=== PATIENT | female | born 1950 ===

== ENCOUNTER 2017-03-26 16:53 | Emergency (ER) | payer MEDICARE, OTHER ==
[2017-03-26 16:53] VITALS: BMI 33.7
[2017-03-26 17:10] VITALS: O2SAT 99
[2017-03-26] MEDS ORDERED: Sodium Chloride 0.9% 500 ML IV STA (17:29)
[2017-03-26 17:49] LABS: BASO # 0.1 K/uL (0.0-0.2); BASO % 1.2 % (0.0-2.0); EOS % 0.5 % (0.0-4.0); HEMATOCRIT 36.9 % (34.0-47.0); LYMPH # 1.4 K/uL (1.0-4.3); LYMPH % 19.9 % (20.0-40.0); MEAN CELL VOLUME 92.7 fl (81.0-99.0); MEAN CORPUSCULAR HEMOGLOBIN 30.4 pg (27.0-31.0); MEAN CORPUSCULAR HGB CONC 32.8 g/dL (33.0-37.0); MEAN PLATELET VOLUME 8.3 fl (7.2-11.7); MONO # 0.5 K/uL (0.0-0.8); MONO % 7.6 % (0.0-10.0); NEUT # 4.9 K/uL (1.8-7.0); NEUT % 70.8 % (50.0-75.0); WHITE BLOOD COUNT 6.9 K/uL (4.8-10.8)
--- NOTE | 2017-03-26 17:52 | ED PDOC ---
HPI: Abdomen Time Seen by Provider: 03/26/17 17:13 Chief Complaint (Nursing): Abdominal Pain Chief Complaint (Provider): Abdominal Pain History Per: Patient History/Exam Limitations: no limitations Onset/Duration Of Symptoms: Hrs Outside of [place] travel?: No Current Symptoms Are (Timing): Still Present Location Of Pain/Discomfort: LLQ Associated Symptoms: Nausea. denies: Vomiting, Diarrhea, Constipation Additional Complaint(s): Kaitlynn Mendoza, a 66 year old female, with a PMHx of diverticulitis presents to the ED complaining of abdominal pain. The patient reports that she has chronic abdominal pain but within the past 4 hours her pain has become more severe. She states that her pain is localized to the LLQ but radiates to the RLQ and LUQ. The patient states that she has had similar symptoms prior to episodes of diverticulitis. She reports that she took nexium and bentyl with no relief. The patient states prior to the onset of severe pain she had a normal appetite. Denies vomiting, diarrhea, constipation, black/bloody stools, fever, urinary symptoms but reports having chills and nausea PMD: Dr. Resendiz Past Medical History Reviewed: Historical Data, Nursing Documentation, Vital Signs Vital Signs: Last Vital Signs Temp 97.8 F 03/26/17 17:07 Pulse 86 03/26/17 17:07 Resp 16 03/26/17 17:07 BP 149/96 H 03/26/17 17:07 Pulse Ox 99 03/26/17 18:02 - Medical History PMH: Anxiety, Arthritis, Asthma, Depression, Diabetes (Borderline Diabetes), Diverticulitis, Fractures (HX: FX. RIGHT ANKLE), Gastritis, HTN, Hypercholesterolemia, Peripheral Edema, Sleep Apnea Denies: HIV, Chronic Kidney Disease - Surgical History Surgical History: Endoscopy Other surgeries: Left foot surgery - Family History Family History: States: Hypertension - Social History Current smoker - smoking cessation education provided: No Ex-Smoker (has not smoked in the last 12 months): No Alcohol: None Drugs: Denies - Home Medications Home Medications: Ambulatory Orders Medication Instructions Recorded ALPRAZolam [Xanax] 1 mg PO BID 06/28/15 Dicyclomine [Bentyl] 10 mg PO DAILY 06/28/15 Gabapentin [Neurontin] 600 mg PO TID 06/28/15 Triamterene/Hydrochlorothiazid 1 tab PO DAILY 06/28/15 [Triamterene-Hctz 37.5-25 mg Tb] Ascorbic Acid [Vitamin C 500 mg 500 mg PO DAILY 01/10/16 Tab] Aspirin [[place] Aspirin] 81 mg PO DAILY 01/10/16 Omeprazole [Prilosec] 40 mg PO DAILY 01/10/16 Simvastatin 40 mg PO HS 01/10/16 buPROPion XL [Wellbutrin XL] 300 mg PO DAILY 01/10/16 Atorvastatin [Lipitor] 1 tab PO DAILY 07/31/16 Bupropion HCl [Bupropion Xl] 150 mg PO DAILY 07/31/16 Levocetirizine Dihydrochloride 1 tab PO DAILY 07/31/16 [Xyzal] Meloxicam [Mobic] 1 tab PO DAILY 07/31/16 Multivit,Iron,Min 5/Folic Acid 1 tab PO DAILY 07/31/16 [Strovite Forte Caplet] Risedronate Sodium [Actonel] 1 tab PO QWK 07/31/16 Zolpidem [Ambien] 1 tab PO HS PRN 07/31/16 Ciprofloxacin [Cipro] 500 mg PO BID #14 tab 08/02/16 Metronidazole [Flagyl] 500 mg PO TID #21 tablet 08/02/16 Ciprofloxacin HCl [Cipro] 500 mg PO BID #20 tab 03/26/17 Ondansetron ODT [Zofran ODT] 1 odt PO Q6 PRN #20 odt 03/26/17 metroNIDAZOLE [Flagyl] 500 mg PO TID #30 tab 03/26/17 traMADol [Ultram] 50 mg PO TID PRN #15 tab 03/26/17 - Allergies Allergies/Adverse Reactions: Allergies Allergy/AdvReac Type Severity Reaction Status Date / Time Penicillins AdvReac DIZZINESS Verified 03/26/17 17:07 Review of Systems ROS Statement: Except As Marked, All Systems Reviewed And Found Negative Constitutional: Positive for: Chills. Negative for: Fever Gastrointestinal: Positive for: Nausea, Abdominal Pain. Negative for: Vomiting , Diarrhea, Constipation Genitourinary Female: Negative for: Dysuria, Frequency, Incontinence, Hematuria Physical Exam - Reviewed Nursing Documentation Reviewed: Yes Vital Signs Reviewed: Yes - Physical Exam Appears: Positive for: Non-toxic, Uncomfortable, In Acute Distress (Moderate painful distress.) Head Exam: Positive for: ATRAUMATIC, NORMOCEPHALIC Skin: Positive for: Normal Color, Warm, Dry Eye Exam: Positive for: Normal appearance, EOMI, PERRL ENT: Positive for: Pharynx Is (pharynx is clear), Other (dry mucous membranes) Neck: Positive for: Normal, Painless ROM, Supple Cardiovascular/Chest: Positive for: Regular Rate, Rhythm, Chest Non Tender. Negative for: Tachycardia Respiratory: Positive for: Normal Breath Sounds. Negative for: Wheezing, Respiratory Distress Gastrointestinal/Abdominal: Positive for: Soft, Tenderness (Tenderness to palpation diffusely but exquisite tenderness to palpation in LLQ.), Other ( Neative for adams's sign). Negative for: Mass, Guarding, Rebound Back: Positive for: Normal Inspection Extremity: Positive for: Normal ROM. Negative for: Tenderness, Pedal Edema, Deformity, Swelling Neurologic/Psych: Positive for: Alert, Oriented, Gait - Laboratory Results Result Diagrams: 03/26/17 17:35 03/26/17 17:35 - ECG O2 Sat by Pulse Oximetry: 99 (RA) Pulse Ox Interpretation: Normal Medical Decision Making Medical Decision Makin:13 Initial impression: 66 year old female presenting with LLQ pain Differential: Diverticulitis, Colitis, Perforation,Abscess,Kidney stones Initial Plan: * CT ABD&PELVIS IV contrast * CMP * Lactic acid plasma * Lipase * Udip * CBC * Partial thromboplastin * Prothrombin time * Toradol 15mg IV * Morphine IVP * NS 500ml IV 500mls/hr * Zofran inj 8mg IV * Blood culture * Reevaluation Accession No. 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 no. Patient Name: KAITLYNN MENDOZA Pt. Address: [address] [place] [address] Rec #: [id number] [place] [address]: Jhoan PATIÑO, Nellie Salgado Pt Order Location: [facility] : 1950 Female Age: 66 Order #: [id number] Reason for exam: LLQ pain h/o diverticulitis CT Scan ABD PELVIS IV CONTRAST ONLY Exam Date: 03/26/17 This imaging exam was performed at [facility] EXAM: CT Abdomen and Pelvis With Intravenous Contrast CLINICAL HISTORY: 66 years old, female; Pain; Abdominal pain; Generalized; Patient HX: History of diverticulitis; Additional info: Llq pain h/o diverticulitis TECHNIQUE: Axial computed tomography images of the abdomen and pelvis with intravenous contrast. This CT exam was performed using one or more of the following dose reduction techniques: automated exposure control, adjustment of the mA and/or kV according to patient size, and/or use of iterative reconstruction technique. Coronal and sagittal reformatted images were created and reviewed. CONTRAST: 95 mL of OMNIPAQUE 300 administered intravenously. EXAM DATE/TIME: 03/26/2017 5:29 PM COMPARISON: CT - ABD PELVIS PO IV CONTRAST 07/31/2016 1:01:29 AM FINDINGS: Lower thorax: The heart is mildly enlarged. There is a small hiatal hernia. There is dependent atelectasis and scarring at the lung bases. There is a 7.4 mm peripheral nodular opacity in the right lower lobe similar to that seen on the prior study ABDOMEN: Liver: There is a cyst in the left lobe of the liver. There are additional low attenuation hepatic lesions too small to characterize. There is fatty infiltration of the liver. Gallbladder and bile ducts: unremarkable Pancreas: Pancreas is atrophic. Spleen: unremarkable Adrenals: Right adrenal is unremarkable. There is an 8.9 mm fatty left adrenal nodule. Kidneys and ureters: unremarkable Stomach and bowel: Stomach is incompletely distended. There is duodenal wall and fold prominence. Rotation is normal. Majority of the small bowel is mildly dilated and filled with enteric contents. There are nondilated loops in the left upper quadrant with wall thickening. Distal and terminal ileum are fecalized and dilated. Appendix is unremarkable. There is diverticulosis throughout the colon. Appendix: See stomach and bowel PELVIS: Bladder: unremarkable Reproductive: Uterus and adnexal structures are unremarkable. ABDOMEN and PELVIS: Intraperitoneal space: There is no significant fluid. There is no free air. Bones/joints: There are degenerative changes in the osseus structures. Soft tissues: There is a right inguinal hernia containing fat and fluid. There is a very small fat containing left inguinal hernia. There is a small fat containing umbilical hernia. Vasculature: There are multiple phleboliths. There are vascular calcifications. Lymph nodes: There is shotty adenopathy IMPRESSION: Enteritis, no obstruction; extensive colonic diverticulosis without CT findings of diverticulitis Additional findings as described above. Dictated By: Hakeem Villavicencio MD, MD Dictated Date/Time: 03/26/171929 Signed By: Hakeem Villavicencio MD Date Signed: 1929 Transcribed By: CHANNING Transcribe Date/Time : 03/26/171929 ANGELLA/ANAHY Labs unremarkable. On reevaluation Pt feeling better. DW pt findings and plan of care. Antibiotics, symptomatic treatment, f/u pmd 24 hours. Scribe Attestation Documented by Sussy Burdick acting as a scribe for Nellie Staples MD. Provider Attestation All medical record entries made by the Scribe were at my direction and personally dictated by me. I have reviewed the chart and agree that the record accurately reflects my personal performance of the history, physical exam, medical decision making, and the department course for this patient. I have also personally directed, reviewed, and agree with the discharge instructions and disposition. Disposition - Clinical Impression Clinical Impression: Enteritis, Diverticulosis Counseled Patient/Family Regarding: Studies Performed, Diagnosis, Need For Followup, Rx Given - Disposition Referrals: Mariano Resendiz MD [Staff Provider] - 03/27/17 Disposition: Routine/Home Disposition Time: 20:00 Condition: IMPROVED Prescriptions: Ciprofloxacin HCl [Cipro] 500 mg PO BID #20 tab metroNIDAZOLE [Flagyl] 500 mg PO TID #30 tab Ondansetron ODT [Zofran ODT] 1 odt PO Q6 PRN #20 odt PRN Reason: Nausea/Vomiting traMADol [Ultram] 50 mg PO TID PRN #15 tab PRN Reason: SEVERE PAIN ONLY Instructions: Enteritis (ED), Diverticulosis (ED) Print Language: PASHTO
[2017-03-26 17:58] LABS: ALB/GLOB RATIO 1.6 (1.0-2.1); ALKALINE PHOSPHATASE 47 U/L (38-126); ALT/SGPT 33 U/L (9-52); AST/SGOT 26 U/L (14-36); BILIRUBIN,TOTAL 0.7 mg/dl (0.2-1.3); BLOOD UREA NITROGEN 18 mg/dl (7-17); CALCIUM 9.2 mg/dL (8.4-10.2); CARBON DIOXIDE 28 mmol/L (22-30); CHLORIDE 98 mmol/L (98-107); GFR AFRICAN-AMERICAN > 60; GLUCOSE,RANDOM 101 mg/dL (65-105); LIPASE 80 U/L (23-300); POTASSIUM 3.8 MMOL/L (3.6-5.0); SODIUM 136 mmol/l (132-148); TOTAL PROTEIN 7.2 G/DL (6.3-8.2)
[2017-03-26 18:07] LABS: RBC URINE 16 /hpf (0-3); URINE BACTERIA RARE (<OCC); URINE BILIRUBIN NEGATIVE (NEGATIVE); URINE BLOOD SMALL (NEGATIVE); URINE COLOR YELLOW (YELLOW); URINE GLUCOSE (UA) NEG (Normal); URINE KETONE TRACE mg/dL (NEGATIVE); URINE LEUKOCYTE ESTERASE TRACE Leu/uL (Negative); URINE PROTEIN NEGATIVE (NEGATIVE); URINE UROBILINOGEN 0.2-1.0 mg/dL (0.2-1.0); WBC URINE 2 /hpf (0-5)
[2017-03-26 18:10] LABS: PARTIAL THROMBOPLASTIN TIME 25.3 Seconds (25.6-37.1)
[2017-03-26] MEDS ORDERED: Sodium Chloride 0.9% 50 ML IV ONE (18:26)
[2017-03-26] MEDS ORDERED: Iohexol 300 100 ML IJ ONE (18:26)
--- NOTE | 2017-03-26 19:30 | CT ---
EXAM: CT Abdomen and Pelvis With Intravenous Contrast CLINICAL HISTORY: 66 years old, female; Pain; Abdominal pain; Generalized; Patient HX: History of diverticulitis; Additional info: Llq pain h/o diverticulitis TECHNIQUE: Axial computed tomography images of the abdomen and pelvis with intravenous contrast. This CT exam was performed using one or more of the following dose reduction techniques: automated exposure control, adjustment of the mA and/or kV according to patient size, and/or use of iterative reconstruction technique. Coronal and sagittal reformatted images were created and reviewed. CONTRAST: 95 mL of OMNIPAQUE 300 administered intravenously. EXAM DATE/TIME: 03/26/2017 5:29 PM COMPARISON: CT - ABD PELVIS PO IV CONTRAST 07/31/2016 1:01:29 AM FINDINGS: Lower thorax: The heart is mildly enlarged. There is a small hiatal hernia. There is dependent atelectasis and scarring at the lung bases. There is a 7.4 mm peripheral nodular opacity in the right lower lobe similar to that seen on the prior study ABDOMEN: Liver: There is a cyst in the left lobe of the liver. There are additional low attenuation hepatic lesions too small to characterize. There is fatty infiltration of the liver. Gallbladder and bile ducts: unremarkable Pancreas: Pancreas is atrophic. Spleen: unremarkable Adrenals: Right adrenal is unremarkable. There is an 8.9 mm fatty left adrenal nodule. Kidneys and ureters: unremarkable Stomach and bowel: Stomach is incompletely distended. There is duodenal wall and fold prominence. Rotation is normal. Majority of the small bowel is mildly dilated and filled with enteric contents. There are nondilated loops in the left upper quadrant with wall thickening. Distal and terminal ileum are fecalized and dilated. Appendix is unremarkable. There is diverticulosis throughout the colon. Appendix: See stomach and bowel PELVIS: Bladder: unremarkable Reproductive: Uterus and adnexal structures are unremarkable. ABDOMEN and PELVIS: Intraperitoneal space: There is no significant fluid. There is no free air. Bones/joints: There are degenerative changes in the osseus structures. Soft tissues: There is a right inguinal hernia containing fat and fluid. There is a very small fat containing left inguinal hernia. There is a small fat containing umbilical hernia. Vasculature: There are multiple phleboliths. There are vascular calcifications. Lymph nodes: There is shotty adenopathy IMPRESSION: Enteritis, no obstruction; extensive colonic diverticulosis without CT findings of diverticulitis Additional findings as described above.
[2017-03-26 20:59] VITALS: BP 138/80; PULSE 70; RESP 18; TEMP 98
== END 2017-03-26 21:00 | disposition home or self-care (01) ==
LOC: H.ER 16:53
DX: K57.90 Diverticulosis of intestine, part unspecified, without perforation or abscess without bleeding (principal); K52.9 Noninfective gastroenteritis and colitis, unspecified; R11.0 Nausea; E11.9 Type 2 diabetes mellitus without complications
CPT/HCPCS: 74177; 80053; 81003; 83605; 83690; 85025; 85610; 85730; 87040; 87086; 96361; 96374; 96375; 99283; J1885; J2270; J2405; J7040; Q9967